=== PATIENT | female | born 1965 | race Caucasian/White ===

== ENCOUNTER 2016-12-22 21:24 | Emergency (ER) | payer OTHER | END 2016-12-23 07:15 | disposition home or self-care (01) | LOC: ER1 21:24 | DX: S01.01XA Laceration without foreign body of scalp, initial encounter (principal); Z23 Encounter for immunization; W21.07XA Struck by softball, initial encounter; Y92.830 Public park as the place of occurrence of the external cause | CPT/HCPCS: 70450; 90471; 90715; 99283 ==

== ENCOUNTER → 2021-01-15 | Outpatient (CLI) | payer BC, OTHER | LOC: KOH-I 13:42 | DX: E04.2 Nontoxic multinodular goiter (principal) | CPT/HCPCS: 76536 ==

== ENCOUNTER → 2021-11-18 | Outpatient (CLI) | payer OTHER, BC | LOC: MRI 11:00 | DX: M25.511 Pain in right shoulder (principal) | CPT/HCPCS: 73221 ==